=== PATIENT | male | born 1985 | race Caucasian/White ===

== ENCOUNTER → 2018-02-23 | Day surgery (SDC) | payer OTHER ==
[~2018-02-23] MED LIST: DEXAMETHASONE SOD PHOS INJ 4 MG/ML VIAL ONE; FENTANYL CITRATE/PF 100MCG/2 ML INJ ONE; LEVOFLOXACIN 500MG/D5W 100ML 100 ML IV ONE; LIDOCAINE HCL 2% LOCAL INJ 5 ML SDV VIAL INJ ONE; MIDAZOLAM HCL 2 MG/2 ML VIAL ONE; NEXIUM OTC PO; ONDANSETRON HCL INJ 2 MG/ML VIAL ONE; PROPOFOL IV EMULSION 10 MG/ML 20 ML VIAL ONE; SEVOFLURANE INHAL SOLN 250 ML PEN BTL ONE
--- NOTE | 2018-02-23 10:24 | Diagnostic Imaging Report ---
PROCEDURE:X-RAY ABDOMEN - KUB COMPARISON:None. INDICATIONS:LEFT RENAL CALCULUS, PREOP FINDINGS: Gas pattern is nonobstructive. No calcifications project over the renal shadows, though evaluation is limited by significant overlying bowel gas and fecal material. No calcifications project over the expected ureteral courses. Regional skeletal structures are intact. No organomegaly. CONCLUSION: No plain film evidence of urolithiasis, though the renal shadows are significantly obscured by overlying bowel gas and fecal material. Dictated by: Charan Fernandez M.D. on 02/23/2018 at 10:28 Electronically approved by: Charan Fernandez M.D. on 02/23/2018 at 10:28
--- NOTE | 2018-02-23 15:05 | Operative Report ---
DATE OF PROCEDURE: February 23, 2018 PREOPERATIVE DIAGNOSIS: Left renal calculus 7 x 7 mm, mid pole calyx. POSTOPERATIVE DIAGNOSIS: Left renal calculus 7 x 7 mm, mid pole calyx. OPERATION PERFORMED: Left renal extracorporeal shock wave lithotripsy. ANESTHETIC: General. INDICATIONS: James is a 32-year-old male who presented with a chief complaint of severe pain on the left side. Workup showed that he has a left renal calculus about 7 x 7 mm in the right mid pole calyx. DETAILS OF PROCEDURE: This patient was placed on the table in the supine position and the stone was brought into position between F1 and F2 of the fluoroscopic monitors. The lithotripsy was then started starting at 2 kilovolts and slowly and gradually increased to 7 kilovolts. Observation of the stone pulverization was done at 200-250 shocks intermittently. At 2000 shocks, it was felt that the stone has completely pulverized and completely fragmented and powdered. The lithotripsy was then shut down. Patient tolerated the procedure well and was taken to the recovery room in satisfactory condition. Plans for this patient are to be placed on Macrobid 100 mg 1 twice day for 1 week. Ultracet tablet 1 every 4 to 6 hours p.r.n. and was given 30. He is to return to the office in about 1 month. Job#: [id number] [facility]
== END | disposition home or self-care (01) ==
LOC: OR 08:20
PROVIDERS: ATTEND Specialist
DX: N20.0 Calculus of kidney (principal); K21.9 Gastro-esophageal reflux disease without esophagitis; Z88.0 Allergy status to penicillin
CPT/HCPCS: 50590; 74018; 93005; J1956; J2250; J2405; J1100; J2001